=== PATIENT | female | born 1965 | race Caucasian/White ===

== ENCOUNTER → 2021-08-30 | Day surgery (SDC) | payer OTHER ==
[~2021-08-30] MED LIST: ADMELOG100 UNIT/1 SQ; AMITRIPTYLINE100 MG PO; ASPIRIN EC81 MG PO; BASAGLAR K100 UNIT/1 SC; CLONIDINE HCL0.2 MG PO; COZAAR25 MG PO; FARXIGA10 MG PO; FISH OIL 1,0001 EAC1 PO; GLUCOPHAGE XR500 M1 PO; LANTUS SOL100 UNIT/1 SQ; LIPITOR80 MG PO; LOPRESSOR50 MG PO; NEURONTIN 100100 MG PO; NEXIUM20 MG PO; REPATHA; SYNTHROID100 MCG PO; TRICOR48 MG PO; TRINTELLIX PO; VERAPAMIL ER120 M1 PO; VITAMIN D250000 UNIT PO; ZANTAC150 MG PO; [UNRECOGNIZED DRUG - OTHER] PO
== END | disposition home or self-care (01) ==
LOC: OR 06:53
DX: Z12.11 Encounter for screening for malignant neoplasm of colon (principal); K29.60 Other gastritis without bleeding; K31.9 Disease of stomach and duodenum, unspecified; D12.5 Benign neoplasm of sigmoid colon; D12.3 Benign neoplasm of transverse colon; K64.0 First degree hemorrhoids; K64.1 Second degree hemorrhoids; K75.81 Nonalcoholic steatohepatitis (NASH); E03.9 Hypothyroidism, unspecified; E11.22 Type 2 diabetes mellitus with diabetic chronic kidney disease; I12.9 Hypertensive chronic kidney disease with stage 1 through stage 4 chronic kidney disease, or unspecified chronic kidney disease; N18.2 Chronic kidney disease, stage 2 (mild); E66.8 Other obesity; Z68.30 Body mass index [BMI] 30.0-30.9, adult; Z72.0 Tobacco use; Z86.010 Personal history of colon polyps; Z88.8 Allergy status to other drugs, medicaments and biological substances; Z79.82 Long term (current) use of aspirin
CPT/HCPCS: 82962; J2704; J7040